=== PATIENT | female | born 1980 | race Caucasian/White ===

== ENCOUNTER 2018-08-12 22:14 | Emergency (ER) | payer MEDICAID ==
[2018-08-12] MEDS: IPRATROPIUM (NEB) 0.5 MG/2.5 ML AMP NEB (22:59)
[2018-08-12] MEDS: ALBUTEROL 0.083% (NEB) 2.5 MG/3 ML AMP NEB (22:59)
[2018-08-12] MEDS: DEXAMETHASONE 10 MG/ML 1 ML INJ PO (23:07)
[2018-08-12] MEDS: ACETAMINOPHEN 500 MG TAB PO (23:07)
== END 2018-08-13 00:07 | disposition home or self-care (01) ==
LOC: FTE 08-13 00:07
DX: J40 Bronchitis, not specified as acute or chronic (principal)
CPT/HCPCS: 71045; 94664; 99283-25